=== PATIENT | male | born 1960 | race Caucasian/White ===

== ENCOUNTER 2024-01-19 15:43 | Emergency (ER) | payer SELFPAY ==
[~2024-01-19] VITALS: Ht 177.8 cm; Wt 77.1 kg
[2024-01-19 15:46] VITALS: BP 131/77; PULSE 62; RESP 16; TEMP 97.9; O2SAT 99
[2024-01-19 16:50] LABS: BASOPHILS % 0.2 % (0.0-2.0); HEMATOCRIT. 46.9 % (42.0-52.0); HEMOGLOBIN. 15.6 g/dL (14.0-18.0); LYMPHOCYTES % 7.4 % (20.0-50.0); MEAN CORPUSCULAR HEMOGLOBIN 30.7 pg (28.0-32.0); MEAN CORPUSCULAR HGB CONC 33.3 g/dL (31.0-37.0); MEAN CORPUSCULAR VOLUME 92.2 fL (80.0-94.0); MEAN PLATELET VOLUME 7.7 fl (7.4-10.4); MONOCYTES % 5.2 % (2.0-8.0); NEUTROPHILS % 86.2 % (40.0-76.0); PLATELET 239 x1000/uL (130-400); RED BLOOD CELL COUNT 5.09 mill/uL (4.7-6.1); RED CELL DISTRIBUTION WIDTH 13.3 % (11.6-14.6); WHITE BLOOD COUNT 13.7 x1000/uL (4.5-11.0)
[2024-01-19 16:56] LABS: CHLORIDE 104 mEq/L (98-107); SODIUM 138 mEq/L (136-145)
[2024-01-19 16:57] LABS: CALCIUM 9.5 mg/dL (8.7-10.4); CARBON DIOXIDE 29 mEq/L (21-32)
[2024-01-19 17:02] LABS: CREATININE 0.9 mg/dL (0.6-1.3); GLUCOSE 127 mg/dL (70-105); UREA NITROGEN BLOOD 16 mg/dL (9-23)
[2024-01-19 17:06] LABS: TROPONIN I HIGH SENSITIVITY < 4 ng/L (3.0-53)
[2024-01-19] MEDS ORDERED: ASPI-1497 MT (18:51)
== END 2024-01-19 19:10 | disposition home or self-care (01) ==
LOC: ER 15:43
DX: S01.01XA Laceration without foreign body of scalp, initial encounter (principal); R55 Syncope and collapse; Z88.6 Allergy status to analgesic agent; Z79.82 Long term (current) use of aspirin; X58.XXXA Exposure to other specified factors, initial encounter; Y93.89 Activity, other specified; Y92.89 Other specified places as the place of occurrence of the external cause; Y99.8 Other external cause status
CPT/HCPCS: 12002; 36415; 80048; 84484; 85025; 93005; 99284